=== PATIENT | male | born 1975 | race Caucasian/White ===

== ENCOUNTER 2017-02-18 19:02 | Emergency (ER) | payer BC, OTHER ==
[~2017-02-18] VITALS: Ht 188 cm; Wt 102.3 kg
[~2017-02-18 19:02] MED LIST: BIOT7500 PO; BUSP5TA PO; CALC250T PO; HYDR-3713 PO; OMEP20CA3 PO; TEGR200T PO; TYLE325T5 PO; VITA1CAP7 PO; VITMTA PO; ZONE1CAP PO; [UNRECOGNIZED DRUG - CODE] SL
[2017-02-18 21:26] LABS: BASO % 0.4 % (0.0-1.0); EOS # 0.2 K/mm3 (0.0-0.50); EOS % 3.9 % (0.0-3.0); LARGE UNSTAINED CELL # 0.1 K/mm3 (0.0-0.4); LARGE UNSTAINED CELL % 2.3 % (0.0-4.0); LYMPH # 1.9 K/mm3 (1.5-4.5); LYMPH % 41.3 % (24.0-44.0); MEAN CORPUSCULAR HEMOGLOBIN 29.6 pg (27.0-33.0); MEAN CORPUSCULAR HGB CONC 32.6 g/dl (32.0-36.5); MEAN CORPUSCULAR VOLUME 90.6 fl (80.0-96.0); MONO # 0.3 K/mm3 (0.0-0.8); MONO % 6.7 % (0.0-5.0); NEUTROPHILS % 45.5 % (36.0-66.0); PLATELET COUNT, AUTOMATED 217 k/mm3 (150-450); RED CELL DISTRIBUTION WIDTH 13.4 % (11.5-14.5); WHITE BLOOD COUNT 4.4 K/mm3 (4.0-10.0)
[2017-02-18] MEDS ORDERED: CLINDAMYCIN 900 MG in APPROPRIATE DILUENT 1 EA IV ONE (21:30)
[2017-02-18] MEDS ORDERED: dexameTHASONE 20 MG/5 ML VIAL (J1100) IV ONE (21:45)
[2017-02-18 22:11] LABS: ALBUMIN 3.9 GM/DL (3.2-5.2); ALBUMIN/GLOBULIN RATIO 1.18 (1.00-1.93); ALKALINE PHOSPHATASE 75 U/L (45-117); ALT/SGPT 40 U/L (12-78); ANION GAP 8 MEQ/L (8-16); AST/SGOT 39 U/L (15-37); BILIRUBIN,DIRECT 0.1 MG/DL (0.0-0.2); BILIRUBIN,TOTAL 0.5 MG/DL (0.2-1.0); BLOOD UREA NITROGEN 11 MG/DL (7-18); CALCIUM LEVEL 8.3 MG/DL (8.5-10.1); CARBON DIOXIDE LEVEL 25 MEQ/L (21-32); CHLORIDE LEVEL 108 MEQ/L (98-107); CREATININE FOR GFR 0.77 MG/DL (0.70-1.30); GLOMERULAR FILTRATION RATE > 60.0 (>60); GLUCOSE, FASTING 69 MG/DL (70-105); POTASSIUM SERUM 3.9 MEQ/L (3.5-5.1); SODIUM LEVEL 141 MEQ/L (136-145); TOTAL PROTEIN 7.2 GM/DL (6.4-8.2)
[2017-02-18 22:35] VITALS: BP 125/78
== END 2017-02-18 23:04 | disposition home or self-care (01) ==
LOC: M ED 19:02
DX: K12.2 Cellulitis and abscess of mouth (principal); J02.9 Acute pharyngitis, unspecified; R56.9 Unspecified convulsions; Z79.899 Other long term (current) drug therapy; Z88.5 Allergy status to narcotic agent; Z88.0 Allergy status to penicillin
CPT/HCPCS: 36415; 80048; 80076; 83605; 85025; 86140; 87040; 87077; 87186; 96374; 96375; 99283; J1100

== ENCOUNTER → 2017-12-09 | Outpatient (REF) | payer BC ==
[2017-12-09 13:17] LABS: BASO % 0.5 % (0.0-1.0); EOS # 0.1 10^3/uL (0.0-0.50); EOS % 2.8 % (0.0-3.0); HEMATOCRIT 40.8 % (42.0-52.0); HEMOGLOBIN 13.2 g/dl (13.5-17.5); LYMPH # 1.6 10^3/uL (1.5-4.5); LYMPH % 39.5 % (24.0-44.0); MEAN CORPUSCULAR HEMOGLOBIN 28.1 pg (27.0-33.0); MEAN CORPUSCULAR HGB CONC 32.4 g/dl (32.0-36.5); MEAN CORPUSCULAR VOLUME 86.8 fl (80.0-96.0); MONO # 0.4 10^3/uL (0.0-0.8); MONO % 9.8 % (0.0-5.0); NEUTROPHILS # 1.9 10^3/uL (1.8-7.7); NEUTROPHILS % 47.4 % (36.0-66.0); PLATELET COUNT, AUTOMATED 242 10^3/uL (150-450); RED CELL DISTRIBUTION WIDTH 13.6 % (11.5-14.5)
[2017-12-09 13:42] LABS: ALBUMIN 3.9 GM/DL (3.2-5.2); ALBUMIN/GLOBULIN RATIO 1.18 (1.00-1.93); ALKALINE PHOSPHATASE 69 U/L (45-117); ALT/SGPT 42 U/L (12-78); ANION GAP 8 MEQ/L (8-16); AST/SGOT 34 U/L (7-37); BILIRUBIN,TOTAL 0.4 MG/DL (0.2-1.0); BLOOD UREA NITROGEN 18 MG/DL (7-18); CALCIUM LEVEL 8.1 MG/DL (8.5-10.1); CARBAMAZEPINE (TEGRETOL) LEVEL 5.1 UG/ML (4.0-10.0); CARBON DIOXIDE LEVEL 29 MEQ/L (21-32); CHLORIDE LEVEL 105 MEQ/L (98-107); CREATININE FOR GFR 0.86 MG/DL (0.70-1.30); GLOMERULAR FILTRATION RATE > 60.0 (>60); GLUCOSE, FASTING 93 MG/DL (70-100); POTASSIUM SERUM 4.4 MEQ/L (3.5-5.1); SODIUM LEVEL 142 MEQ/L (136-145); TOTAL PROTEIN 7.2 GM/DL (6.4-8.2)
[2017-12-11 10:16] LABS: ZONISAMIDE LEVEL 4.8 ug/mL (10.0-40.0)
== END ==
LOC: M LABNEURO 11:15
DX: G40.909 Epilepsy, unspecified, not intractable, without status epilepticus (principal)
CPT/HCPCS: 80156

== ENCOUNTER 2018-03-22 10:36 | Day surgery (SDC) | payer OTHER ==
[2018-03-22] MEDS ORDERED: PROPOFOL 200 MG/20 ML VIAL As Ordered ×2 (11:21)
[2018-03-22] MEDS ORDERED: fentaNYL 100 MCG/2 ML INJECTION (J3010) As Ordered ×3 (11:21→14:49)
[2018-03-22] MEDS ORDERED: MIDAZOLAM INJ 2 MG/2 ML VIAL (J2250) As Ordered (11:21)
[2018-03-22] MEDS ORDERED: ROCURONIUM BROMIDE 50 MG/5 ML VIAL As Ordered ×4 (11:21→13:41)
[2018-03-22] MEDS ORDERED: LIDOCAINE 2% INJ 100 MG/5 ML SDV (FOR ANES.) As Ordered (11:21)
[2018-03-22] MEDS ORDERED: dexameTHASONE 4 MG/ML 1ML VIAL (J1100) As Ordered (11:21)
[2018-03-22] MEDS: LR 1,000 ML IV (11:25)
[2018-03-22] MEDS: CLINDAMYCIN 600 MG in APPROPRIATE DILUENT 1 EA IV (13:00)
[2018-03-22] MEDS: BUPIVACAINE/EPIN 0.25% 30 ML VIAL As Ordered (13:20)
[2018-03-22] MEDS ORDERED: ONDANSETRON 4MG/2ML VIAL (J2405) As Ordered (14:04)
[2018-03-22] MEDS ORDERED: GLYCOPYRROLATE INJ 0.2 MG/ML 2 ML VIAL As Ordered ×2 (14:04)
[2018-03-22] MEDS ORDERED: PERCOCET 5MG/325MG TAB As Ordered (14:49)
[2018-03-22] MEDS: fentaNYL 100 MCG/2 ML INJECTION (J3010) IV ×4 (14:50→15:05)
[2018-03-22] MEDS: PERCOCET 5MG/325MG TAB PO ×2 (14:58→15:30)
[2018-03-22] MEDS ORDERED: MORPHINE 4 MG/ML 1ML VIAL/SYRINGE (J2270) As Ordered (15:13)
[2018-03-22] MEDS ORDERED: NORCO, ANEXSIA 5/325MG TABLET (HYDROcodone/ACETAMINOPHEN) PO (15:15)
[2018-03-22] MEDS: MORPHINE 10 MG/ML 1ML VIAL (J2270) IV (15:15)
[2018-03-22] MEDS ORDERED: LR 1,000 ML IV (15:15)
[2018-03-22] MEDS: MORPHINE 4 MG/ML 1ML VIAL/SYRINGE (J2270) IV ×2 (15:15→15:58)
[2018-03-22] MEDS ORDERED: ONDANSETRON 4MG/2ML VIAL (J2405) IV (15:15)
== END 2018-03-22 19:00 | disposition home or self-care (01) ==
LOC: M SDC 10:36
DX: K40.90 Unilateral inguinal hernia, without obstruction or gangrene, not specified as recurrent (principal); R56.9 Unspecified convulsions; Z79.899 Other long term (current) drug therapy; Z88.0 Allergy status to penicillin; Z98.84 Bariatric surgery status
CPT/HCPCS: 49650

== ENCOUNTER 2020-02-16 06:25 | Emergency (ER) | payer BC, OTHER ==
[~2020-02-16] VITALS: Ht 185.4 cm; Wt 120.0 kg
[~2020-02-16 06:25] MED LIST changes: +BACL1TAB9 PO; +CAL-150C PO; +CALC950T PO; +D-3-50003 PO; +DEPA1TAB3 PO; +OMEP1CAP73 PO; -OMEP20CA3 PO; +SUCR1SS PO; -VITA1CAP7 PO
[2020-02-16 07:29] LABS: BLOOD UREA NITROGEN 19 MG/DL (7-18); CALCIUM LEVEL 8.3 MG/DL (8.5-10.1); CARBON DIOXIDE LEVEL 30 MEQ/L (21-32); CHLORIDE LEVEL 108 MEQ/L (98-107); CREATININE FOR GFR 0.84 MG/DL (0.70-1.30); GLOMERULAR FILTRATION RATE > 60.0 (>60); GLUCOSE, FASTING 110 MG/DL (70-100); POTASSIUM SERUM 4.3 MEQ/L (3.5-5.1); SODIUM LEVEL 139 MEQ/L (136-145)
[2020-02-16] MEDS ORDERED: VENL75CA47 (07:37)
[2020-02-16 09:01] LABS: CARBAMAZEPINE (TEGRETOL) LEVEL 0.6 UG/ML (4.0-10.0)
[2020-02-16] MEDS ORDERED: carBAMazepine 200 MG TAB PO ONE (09:30)
[2020-02-16 09:51] VITALS: BP 145/82
== END 2020-02-16 09:57 | disposition home or self-care (01) ==
LOC: EDBD 06:25 → M ED 06:25
DX: G40.909 Epilepsy, unspecified, not intractable, without status epilepticus (principal); Z91.14 Patient's other noncompliance with medication regimen; Z98.84 Bariatric surgery status; Z82.0 Family history of epilepsy and other diseases of the nervous system; Z88.0 Allergy status to penicillin; Z88.5 Allergy status to narcotic agent; Z79.899 Other long term (current) drug therapy

== ENCOUNTER 2020-07-10 10:38 | Emergency (ER) | payer BC ==
[~2020-07-10] VITALS: Ht 185.4 cm; Wt 104.5 kg
[~2020-07-10 10:38] MED LIST changes: +VENL75CA47
[2020-07-10] MEDS ORDERED: SILD50TA2 (10:52)
[2020-07-10] MEDS ORDERED: AIMO70IN2 IM (10:52)
[2020-07-10] MEDS ORDERED: carBAMazepine XR 200 MG TAB PO ONE (11:00)
--- NOTE | 2020-07-10 11:15 | REP ---
INDICATION: Seizure with head trauma COMPARISON: 09/28/2017 TECHNIQUE: Axial noncontrast images from the skull base to the vertex with coronal reformations. This CT examination was performed using the following dose reduction techniques: Automated exposure control, adjustment of mA and/or kv according to the patient's size, and use of iterative reconstruction technique. FINDINGS: The ventricles, sulci, and cisterns are normal in position and appearance. Prasad-white differentiation is maintained. No acute intracranial hemorrhage, mass/mass effect, pathology or trauma/injury. No evidence for acute infarction. No extra-axial fluid collection. Calvarium is intact. Paranasal sinuses and mastoid air cells are clear. IMPRESSION: Normal noncontrast head CT. No evidence for acute intracranial pathology or trauma/injury. <Electronically signed by Pawan Gilmore > 07/10/20 [id number]
[2020-07-10] MEDS: MORPHINE 4 MG/ML 1ML VIAL/SYRINGE (J2270) IV PRN ×2 (11:40→12:37)
--- NOTE | 2020-07-10 11:49 | REP ---
INDICATION: injury after fall COMPARISON: None. TECHNIQUE: AP, lateral, bilateral oblique views of the left elbow elbow. FINDINGS: No acute fracture or dislocation is appreciated. Joint spaces and surrounding soft tissues appear normal. Lateral view demonstrates normal positioning to the anterior and posterior fat pads without evidence for effusion/hemarthrosis. No subcutaneous emphysema or foreign body identified. IMPRESSION: Normal elbow radiographs. No acute fracture or dislocation. <Electronically signed by Pawan Gilmore > 07/10/20 [id number]
--- NOTE | 2020-07-10 11:49 | REP ---
INDICATION: injury after fall COMPARISON: None. TECHNIQUE: AP, lateral, bilateral oblique views left wrist. FINDINGS: The carpal bones, surrounding osseous structures, soft tissues, and joint spaces are normal. There is no evidence for acute fracture or dislocation. No subcutaneous emphysema or radiodense foreign body. IMPRESSION: Normal wrist series. No acute fracture or dislocation. <Electronically signed by Pawan Gilmore > 07/10/20 [id number]
--- NOTE | 2020-07-10 11:50 | REP ---
INDICATION: injury after fall COMPARISON: None. TECHNIQUE: AP, lateral left forearm FINDINGS: The osseous structures and joint spaces are intact and normal. There is no evidence for acute fracture or dislocation. Surrounding soft tissues are unremarkable. No subcutaneous emphysema or radiodense foreign body. IMPRESSION: . No acute fracture or dislocation. <Electronically signed by Pawan Gilmore > 07/10/20 [id number]
--- OUTSIDE RECORDS SUMMARY | 2020-07-10 11:58 | CCD | Continuity of Care Document ---
Author Yazan Pozo M.D. Organization Unknown Address [address] [place] [address] Phone [phone] Problems Active Problems Provider Date Epilepsy Rojas Bahena M.D. Onset: 07/18/2014 Migraine without aura Rojas Bahena M.D. Onset: 07/18/2014 Social History Type Date Description Comments Sex Unknown Tobacco Use Start: Unknown Patient has never smoked Allergies, Adverse Reactions, Alerts Active Allergies Reaction Severity Comments Date Penicillins 07/18/2014 Medications Active Medications SIG Qnty Indications Ordering Provide r Date Ropinirole HCL 1mg Tablets take one tablet by mouth at bedtime 90tabs Rojas Bahena M.D. 06/11/2020 Aimovig 140mg/ml Solution Auto-Inj ect 1 inject 140mg/ml sc once a month 1ml Starr Osuna 06/11/2020 Seroquel 25mg Tablets take one tablet by mouth at bedtime 90tabs Rojas Bahena M.D. 12/07/2019 Effexor XR 75mg Caps ER 24HR 1 by mouth every day 90caps Rojas Bahena M.D. 10/19/2018 Baclofen 20mg Tablets 1 by mouth every night at bedtime 90tabs Rojas Bahena M.D. 01/06/2018 Butalbital/Acetaminophen/Caffeine 50-325-40mg Capsules 1 by mouth three times a day as needed 30caps Ab laura Bahena M.D. 10/14/2017 Ativan 2mg Tablets 1 by mouth at onset of a seizure 30tabs Rojas Bahena M.D. 03/15/2013 Zonisamide 100mg Capsules take four capsules by mouth at bedtime 360caps Rojas Bahena M.D. 0 01/11/2013 Tegretol-XR 200mg Tablets ER 12HR take three tablets by mouth twice a day 540tabs Rojas Bahena M.D. 01/11/2013 Immunizations Description No Information Available Vital Signs Date Vital Result Comment 07/18/2014 11:06am BP Systolic 140 mmHg BP Diastolic 80 mmHg Heart Rate 72 /min Height 74 inches 6'2" Weight 198.00 lb BMI (Body Mass Index) 25.4 kg/m2 [place] Body Weight 190 lb Results Test Acquired Date Facility Test Result H/L Range Note Basic Metabolic Profile 02/16/2020 [facility] Glucose, Fasting 110 mg/dL High 70-100 Blood Urea Nitrogen 19 mg/dL High 7-18 Creatinine For GFR 0.84 mg/dL Normal 0.70-1.30 Glomerular Filtration Rate > 60.0 Normal >60 1 Sodium Level 139 mEq/L Normal 136-145 Potassium Serum 4.3 mEq/L Normal 3.5-5.1 Chloride Level 108 mEq/L High 98-107 Carbon Dioxide Level 30 mEq/L Normal 21-32 Anion Gap 1 mEq/L Low 8-16 Calcium Level 8.3 mg/dL Low 8.5-10.1 Laboratory test finding 02/16/2020 [facility] Carbamazepine (Tegretol) Level 0.6 UG/ML Low 4.0-10.0 1 Units are mL/min/1.73 m2 Chronic Kidney Disease Staging per NKF: Stage I & II GFR >=60 Normal to Mildly Decreased Stage III GFR 30-59 Moderately Decreased Stage IV GFR 15-29 Severely Decreased Stage V GFR <15 Very Little GFR Left ESRD GFR <15 on [employer] BU[employer]DER Procedures Description No Information Available Medical Devices Description No Information Available Encounters Description No Information Available Assessments Description No Information Available Plan of Treatment No Information Available Functional Status Description No Information Available Mental Status Description No Information Available Referrals Description No Information Available
--- OUTSIDE RECORDS SUMMARY | 2020-07-10 11:58 | CCD | Continuity of Care Document ---
Author Yazan Pozo M.D. Organization Unknown Address [address] [place] [address] Phone [phone] Problems Active Problems Provider Date Epilepsy Rojas [...] lb BMI (Body Mass Index) 25.4 kg/m2 [place] Body Weight 190 lb Results Test Acquired Date Facility Test Result H/L Range Note Basic Metabolic Profile 02/16/2020 [facility] Glucose, Fasting 110 mg/dL High 70-100 Blood [...] mg/dL Low 8.5-10.1 Laboratory test finding 02/16/2020 [facility] Carbamazepine (Tegretol) Level 0.6 UG/ML Low 4.0-10.0 1 Units are mL/min/1.73 m2 Chronic Kidney Disease Staging per NKF: Stage I & II GFR >=60 Normal to Mildly Decreased Stage III GFR 30-59 Moderately Decreased Stage IV GFR 15-29 Severely Decreased Stage V GFR <15 Very Little GFR Left ESRD GFR <15 on [employer]DER Procedures Description No Information Available Medical Devices Description No Information Available Encounters Type Date Location Provider Dx Diagnosis Office Visit 06/11/2020 10:00a Main office - [place] Rojas Bahena M.D. M79.606 Pain in leg, unspecified G40.911 Epilepsy, unspecified, intra ctable, with status epilepticus G43.819 Other migraine, intractable, without status migrainosus M62.838 Other muscle spasm G25.81 Restless legs syndrome Assessments Date Code Description Provider 06/11/2020 M79.606 Pain in leg, unspecified Jamee santiago M.D. 06/11/2020 G40.911 Epilepsy, unspecified, intractab le, with status epilepticus Rojas Bahena M.D. 06/11/2020 G43.819 Other migraine, intractable, wit hout status migrainosus Rojas Bahena M.D. 06/11/2020 M62.838 Other muscle spasm Rojas Bahena M.D. 06/11/2020 G25.81 Restless legs syndrome Jamar mayer M.D. Plan of Treatment No Information Available Functional Status Description No Information Available Mental Status Description No Information Available Referrals Description No Information Available
--- OUTSIDE RECORDS SUMMARY | 2020-07-10 11:59 | CCD ---
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 rce(s) Supporting Document(s) SARS coronavirus 2 RNA [facility] This lab was ordered by [facility] and reported by [facility]. ID Date Data Source [id number] 05/15/2020 07:30:00 AM EST [facility] Name Value Range Interpretation Code Description Data Shalini rce(s) Supporting Document(s) SARS coronavirus 2 RNA [facility] This lab was ordered by [facility] and reported by [facility]. ID Date Data Source [id number] 05/08/2020 09:00:00 AM EST [facility] Name Value Range Interpretation Code Description Data Shalini rce(s) Supporting Document(s) SARS coronavirus 2 RNA [facility] This lab was ordered by [facility] and reported by [facility]. ID Date Data Source [id number] 05/01/2020 09:20:00 AM EST [facility] Name Value Range Interpretation Code Description Data Shalini rce(s) Supporting Document(s) SARS coronavirus 2 RNA [facility] This lab was ordered by [facility] and reported by [facility]. ID Date Data Source [id number] 04/24/2020 07:30:00 AM EDT [facility] Name Value Range Interpretation Code Description Data Shalini rce(s) Supporting Document(s) SARS coronavirus 2 RNA [facility] This lab was ordered by [facility] and reported by [facility]. ID Date Data Source [id number] 04/17/2020 09:28:00 AM EDT [facility] Name Value Range Interpretation Code Description Data Shalini rce(s) Supporting Document(s) SARS coronavirus 2 RNA [facility] This lab was ordered by [facility] and reported by [facility]. ID Date Data Source [id number] 04/10/2020 12:00:00 PM EDT [facility] Name Value Range Interpretation Code Description Data Shalini rce(s) Supporting Document(s) SARS coronavirus 2 RNA [facility] This lab was ordered by [facility] and reported by [facility]. ID Date Data Source [id number] 04/03/2020 08:00:00 AM EDT [facility] Name Value Range Interpretation Code Description Data Shalini rce(s) Supporting Document(s) SARS coronavirus 2 RNA [facility] This lab was ordered by [facility] and reported by [facility]. ID Date Data Source [id number] 03/20/2020 08:02:00 AM EDT [facility] Name Value Range Interpretation Code Description Data Shalini rce(s) Supporting Document(s) SARS coronavirus 2 RNA [facility] This lab was ordered by [facility] and reported by [facility]. ID Date Data Source [id number] 03/13/2020 08:00:00 AM EDT [facility] Name Value Range Interpretation Code Description Data Shalini rce(s) Supporting Document(s) SARS coronavirus 2 RNA [facility] This lab was ordered by [facility] and reported by [facility]. ID Date Data Source [id number] 03/06/2020 08:31:00 AM EDT [facility] Name Value Range Interpretation Code Description Data Shalini rce(s) Supporting Document(s) SARS coronavirus 2 RNA [facility] This lab was ordered by [facility] and reported by [facility]. ID Date Data Source [id number] 03/01/2020 08:00:00 AM EDT [facility] Name Value Range Interpretation Code Description Data Shalini rce(s) Supporting Document(s) SARS coronavirus 2 RNA [facility] This lab was ordered by [facility] and reported by [facility]. ID Date Data Source [id number] 02/21/2020 09:34:00 AM EDT [facility] Name Value Range Interpretation Code Description Data Shalini rce(s) Supporting Document(s) SARS coronavirus 2 RNA [facility] This lab was ordered by [facility] and reported by [facility]. ID Date Data Source [id number] 02/16/2020 06:47:00 AM EDT [facility] ([facility]) Name Value Range Interpretation Code Description Data Shalini rce(s) Supporting Document(s) Carbamazepine [Mass/volume] in Serum or Plasma 0.6 UG/ML 4.0-10.0 [facility] ([facility]) ID Date Data Source [id number] 02/16/2020 06:47:00 AM EDT [facility] ([facility]) Name Value Range Interpretation Code Description Data Shalini rce(s) Supporting Document(s) Glucose, Fasting 110 mg/dL 70-100 [facility] ([facility]) Creatinine For GFR 0.84 mg/dL 0.70-1.30 [facility] ([facility]) Blood Urea Nitrogen 19 mg/dL 7-18 [facility] ([facility]) Glomerular Filtration Rate Laboratory test result [facility]) <content>Units are mL/min/1.73 m2</content>
<content></content>
<content>Chronic Kidney Disease Staging per NKF:</content>
<content></content>
<content>Stage I & II GFR >=60 Normal to Mildly Decreased</content>
<content>Stage III GFR 30- 59 Moderately Decreased</content>
<content>Stage IV GFR 15-29 Severely Decreased</content>
<content>Stage V GFR <15 Very Little GFR Left</content>
<content>ESRD GFR <15 on [employer]</content>
<content></content> Potassium Serum 4.3 meq/L 3.5-5.1 [facility] ([facility]) Sodium Level 139 meq/L 136-145 [facility] ([facility]) Chloride Level 108 meq/L 98-107 [facility] ([facility]) Calcium Level 8.3 mg/dL 8.5-10.1 [facility] ([facility]) Anion Gap 1 meq/L 8-16 [facility] ([facility]) Carbon Dioxide Level 30 meq/L 21-32 [facility] ([facility]) ID Date Data Source [id number] 01/17/2020 10:00:00 AM EDT [facility] Name Value Range Interpretation Code Description Data Shalini rce(s) Supporting Document(s) SARS coronavirus 2 RNA [facility] This lab was ordered by [facility] and reported by [facility]. ID Date Data Source [id number] 01/10/2020 11:08:00 AM EDT [facility] Name Value Range Interpretation Code Description Data Shalini rce(s) Supporting Document(s) SARS coronavirus 2 RNA [facility] This lab was ordered by [facility] and reported by [facility]. ID Date Data Source [id number] 01/03/2020 11:28:00 AM EDT [facility] Name Value Range Interpretation Code Description Data Shalini rce(s) Supporting Document(s) SARS coronavirus 2 RNA [facility] This lab was ordered by [facility] and reported by [facility]. ID Date Data Source [id number] 12/27/2019 05:30:00 AM EDT [facility] Name Value Range Interpretation Code Description Data Shalini rce(s) Supporting Document(s) SARS CORONAVIRUS 2 RNA [facility] This lab was ordered by [facility] and reported by [facility]. ID Date Data Source [id number] 12/20/2019 09:09:00 AM EDT [facility] Name Value Range Interpretation Code Description Data Shalini rce(s) Supporting Document(s) SARS CORONAVIRUS 2 RNA [facility] This lab was ordered by [facility] and reported by [facility]. ID Date Data Source [id number] 12/13/2019 11:17:00 AM EDT [facility] Name Value Range Interpretation Code Description Data Shalini rce(s) Supporting Document(s) SARS CORONAVIRUS 2 RNA [facility] This lab was ordered by [facility] and reported by [facility]. ID Date Data Source [id number] 12/06/2019 06:00:00 AM EDT [facility] Name Value Range Interpretation Code Description Data Shalini rce(s) Supporting Document(s) SARS CORONAVIRUS 2 RNA [facility] This lab was ordered by [facility] and reported by [facility]. ID Date Data Source [id number] 12/02/2019 10:00:00 AM EDT [facility] Name Value Range Interpretation Code Description Data Shalini rce(s) Supporting Document(s) SARS CORONAVIRUS 2 RNA [facility] This lab was ordered by [facility] and reported by [facility]. ID Date Data Source [id number] 11/29/2019 03:22:00 PM EDT [facility] Name Value Range Interpretation Code Description Data Shalini rce(s) Supporting Document(s) SARS CORONAVIRUS 2 RNA [facility] This lab was ordered by [facility] and reported by [facility]. ID Date Data Source [id number] 11/25/2019 10:18:00 AM EDT [facility] Name Value Range Interpretation Code Description Data Shalini rce(s) Supporting Document(s) SARS CORONAVIRUS 2 RNA [facility] This lab was ordered by [facility] and reported by [facility]. ID Date Data Source [id number] 11/23/2019 11:36:00 AM EDT [facility] Name Value Range Interpretation Code Description Data Shalini rce(s) Supporting Document(s) SARS CORONAVIRUS 2 RNA [facility] This lab was ordered by [facility] and reported by [facility]. ID Date Data Source [id number] 11/17/2019 10:47:00 AM EDT [facility] Name Value Range Interpretation Code Description Data Shalini rce(s) Supporting Document(s) SARS CORONAVIRUS 2 RNA [facility] This lab was ordered by [facility] and reported by [facility]. ID Date Data Source [id number] 11/15/2019 11:00:00 AM EDT [facility] Name Value Range Interpretation Code Description Data Shalini rce(s) Supporting Document(s) SARS CORONAVIRUS 2 RNA [facility] This lab was ordered by [facility] and reported by [facility]. ID Date Data Source [id number] 07/08/2019 02:59:00 PM [facility] Name Value Range Interpretation Code Description Data Shalini rce(s) Supporting Document(s) Thyrotropin [Units/volume] in Serum or Plasma by Detec tion limit <= 0.05 mIU/L 4.27 uIU/mL 0.47 - 5.01 [facility] ID Date Data Source [id number] 07/08/2019 02:59:00 PM [facility] Name Value Range Interpretation Code Description Data Shalini rce(s) Supporting Document(s) Hemoglobin A1c/Hemoglobin.total in Blood 5.2 % 4.4 - 6.1 [facility] {A1]{HB] ID Date Data Source [id number] 07/08/2019 02:49:00 PM [facility] Name Value Range Interpretation Code Description Data Shalini rce(s) Supporting Document(s) Iron [Mass/volume] in Serum or Plasma 55 UG/DL 42 - 135 [facility] ID Date Data Source [id number] 07/08/2019 02:49:00 PM [facility] Value Range Interpretation Code Description Data Shalini rce(s) Supporting Document(s) [facility] Cholesterol [Mass/volume] in Serum or Plasma 175 MG/DL 131 - 200 [facility] Deprecated Triglyceride [Mass/volume] in Serum or Plasma 70 MG/DL 3 5 - 160 [facility] HDL 74 MG/DL 29 - 86 [facility] Cholesterol in LDL/Cholesterol in HDL [Mass Ratio] in Serum or Plasma 97 mg/dL 65 - 175 [facility] Cholesterol.total/Cholesterol in HDL [Mass Ratio] in Serum o r Plasma 2.4 3.4 - 4.9 L [facility] LDL/HDL 1.31 1.00 - 3.55 [facility] CVE RISK CHOL/HDL LDL/HDLMEN: 1/2 AVERAGE 3.43 1.00 AVERAGE 4.97 3.55 2X AVERAGE 9.55 6.25 3X AVERAGE 23.99 7.99WOMEN: 1/2 AVERAGE 3.27 1.47 AVERAGE 4.44 3.22 2X AVERAGE 7.05 5.03 3X AVERAGE 11.04 6.14 ID Date Data Source [id number] 07/08/2019 02:49:00 PM [facility] Name Value Range Interpretation Code Description Data Shalini rce(s) Supporting Document(s) COMPREHENSIVE METABOLIC PANEL [facility] COMPREHENSIVE METABOLIC PANEL Sodium [Moles/volume] in Serum or Plasma 141 mEq/L 134 - 153 [facility] Potassium [Moles/volume] in Serum or Plasma 4.2 mEq/L 3.6 - 5.0 [facility] Chloride [Moles/volume] in Serum or Plasma 103 mEq/L 98 - 107 [facility] Carbon dioxide, total [Moles/volume] in Serum or Plasma 29 MEQ/L 22 - 30 [facility] Glucose [Mass/volume] in Serum or Plasma 116 MG/DL 65 - 110 H [facility] BUN 8 MG/DL 7 - 21 [facility] al Creatinine [Mass/volume] in Serum or Plasma 0.7 MG/DL 0.7 - 1.5 [facility] BUN/CREAT 11 8 - 27 [facility] al Protein [Mass/volume] in Serum or Plasma 7.2 G/DL 6.3 - 8.2 [facility] Albumin [Mass/volume] in Serum or Plasma 4.4 G/DL 3.9 - 5.0 [facility] Globulin [Mass/volume] in Serum by calculation 2.8 GM/DL 2.4 - 3.2 [facility] A/G RATIO 1.6 0.8 - 2.0 [facility] Calcium [Mass/volume] in Serum or Plasma 9.2 MG/DL 8.4 - 10.2 [facility] Bilirubin.total [Mass/volume] in Serum or Plasma 0.7 MG/DL 0.2 - 1.3 [facility] Alkaline phosphatase [Enzymatic activity/volume] in Serum or Plasma 82 U/L 38 - 126 [facility] Aspartate aminotransferase [Enzymatic activity/volume] in Serum or Plasma 37 U/L 5 - 40 [facility] Alanine aminotransferase [Enzymatic activity/volume] in Seru m or Plasma 30 U/L 7 - 56 [facility] Anion gap 3 in Serum or Plasma 9.0 mmol/L 8.0 - 16.0 [facility] AGE [address] [facility] GFR >60 mL/min [facility] AFR AMER GFR >60 mL/min [facility] Male GFR In terprentation 20-49 yrs >60 mL/min Normal 50-59 yrs >56 mL/min Normal 60-69 yrs >49 mL/min Normal 70-79yrs >42 mL/min Normal 80 and above >35 mL/min Normal Female GFR Interpretation 20-39 yrs >60 mL/min Normal 40-49 yrs >58 mL/min Normal 50-59 yrs >51 mL/min Normal 60-69 yrs >45 mL/min Normal 70-79 yrs >39 mL/min Normal 80 and above >32 mL/min Normal ID Date Data Source [id number] 07/08/2019 02:39:00 PM EST [facility] Name Value Range Interpretation Code Description Data Shalini rce(s) Supporting Document(s) CBC W/AUTOMATED DIFF [facility] COMPLETE BLOOD COUNT Leukocytes [#/volume] in Blood by Automated count 4.2 10^3/uL 4.2 - 1 1.0 [facility] Erythrocytes [#/volume] in Blood by Automated count 4.96 10^6/uL 4. 50 - 6.30 [facility] Hemoglobin [Mass/volume] in Blood 14.0 g/dL 14.0 - 16.0 [facility] Hematocrit [Volume Fraction] of Blood by Automated count 43.1 % 4 1.0 - 51.0 [facility] Erythrocyte mean corpuscular volume [Entitic volume] by Auto mated count 86.9 fL 80.0 - 94.0 [facility] Erythrocyte mean corpuscular hemoglobin [Entitic mass] by Automated count 28.2 pg 27.0 - 34.0 [facility] Erythrocyte mean corpuscular hemoglobin concentration [Mass/volume] by Automated count 32.5 g/dL 31.0 - 36.0 [facility] Erythrocyte distribution width [Ratio] by Automated count 13.8 % 11.5 - 14.8 [facility] Platelets [#/volume] in Blood by Automated count 274 10^3/uL 150 - 45 0 [facility] Platelet mean volume [Entitic volume] in Blood by Automated count 10.6 fL 7.4 - 10.4 H [facility] Neutrophils/100 leukocytes in Blood by Automated count 55.3 % 37. 0 - 80.0 [facility] Lymphocytes/100 leukocytes in Blood by Manual count 31.4 % 25.0 - 40.0 [facility] Monocytes/100 leukocytes in Blood by Automated count 10.0 % 3.0 - 8.0 H [facility] Eosinophils/100 leukocytes in Blood by Automated count 2.4 % 0.0 - 7.0 [facility] Basophils/100 leukocytes in Blood by Automated count 0.7 % 0.0 - 2.0 [facility] %IG 0.2 % 0.0 - 0.0 H [facility] %NRBC 0.0 % 0.0 - 0.0 [facility] al Neutrophils [#/volume] in Blood by Automated count 2.32 10^3/uL 2.00 - 6.90 [facility] Lymphocytes [#/volume] in Blood by Automated count 1.32 10^3/uL 0.60 - 3.40 [facility] Monocytes [#/volume] in Blood by Automated count 0.42 10^3/uL 0.00 - 0.90 [facility] Eosinophils [#/volume] in Blood by Automated count 0.10 10^3/uL 0.00 - 0.70 [facility] Basophils [#/volume] in Blood by Automated count 0.03 10^3/uL 0.00 - 0.20 [facility] #IG 0.01 10^3/uL 0.00 - 0.10 [facility] #NRBC 0.00 10^3/uL 0.00 - 0.00 [facility]spital MANUAL DIFF NOT INDICATED [facility] RBC MORPH NOT INDICATED [facility] ID Date Data Source [id number] 07/08/2019 02:37:00 PM EST [facility] Name Value Range Interpretation Code Description Data Shalini rce(s) Supporting Document(s) [facility] SOURCE R [facility] COLOR yellow NORMAL: Yellow [facility] CLARITY clear NORMAL: Clear [facility] Specific gravity of Urine by Test strip 1.010 1.001 - 1.030 [facility] pH 7 5 - 9 [facility] Glucose [Mass/volume] in Urine by Test strip NORM NORMAL: Negat iveth [facility] Bilirubin.total [Presence] in Urine by Test strip NEG NORMAL: Negative [facility] Ketones [Presence] in Urine by Test strip 5 NORMAL: Negative A [facility] Protein [Mass/volume] in Urine by Test strip NEG NORMAL: Negat iveth [facility] Nitrite [Presence] in Urine by Test strip NEG NORMAL: Negative [facility] BLOOD NEG NORMAL: Negative [facility] Leukocyte esterase [Presence] in Urine by Test strip NEG MARCELLO L: Negative [facility] Urobilinogen [Mass/volume] in Urine by Test strip NOR less jacque n 1.0 mg/dL [facility] MICROSCOPIC Not Indicate [facility] ospital ID Date Data Source [id number] 07/08/2019 07:57:00 AM EST [facility] Name Value Range Interpretation Code Description Data Shalini rce(s) Supporting Document(s) Thyrotropin [Units/volume] in Serum or Plasma <pending> [facility] ([facility]) Thyroxine (T4) free [Mass/volume] in Serum or Plasma <pending> [facility] ([facility]) Folate [Mass/volume] in Serum or Plasma <pending> [facility] ([facility]) Calcidiol [Mass/volume] in Serum or Plasma <pending> [facility] ([facility]) Iron [Mass/volume] in Serum or Plasma <pending> [facility] ([facility]) Cobalamin (Vitamin B12) [Mass/volume] in Serum or Plasma <pending> [facility] ([facility]) ID Date Data Source [id number] 07/08/2019 07:57:00 AM EST [facility] ([facility]) Name Value Range Interpretation Code Description Data Shalini rce(s) Supporting Document(s) Hemoglobin A1c/Hemoglobin.total in Blood <pending> [facility] ([facility]) ID Date Data Source [id number] 07/08/2019 02:59:00 PM EST [facility] Name Value Range Interpretation Code Description Data Shalini rce(s) Supporting Document(s) Cobalamin (Vitamin B12) [Mass/volume] in Serum or Plasma 1684 PG /ML 232 - 1245 H [facility] ID Date Data Source [id number] 07/08/2019 02:59:00 PM [facility] Name Value Range Interpretation Code Description Data Shalini rce(s) Supporting Document(s) Folate [Mass/volume] in Serum or Plasma 13.6 NG/ML 4.4 - 31.0 [facility] ID Date Data Source [id number] 07/08/2019 02:59:00 PM [facility] Name Value Range Interpretation Code Description Data Shalini rce(s) Supporting Document(s) Calcidiol [Moles/volume] in Serum or Plasma 23 NG/ML [facility] VITAMIN-D(2 5HYDROXY) Deficiency: <=20 ng/ml Insufficiency: 21-29 ng/ml Preferred level: => 30 ng/ml ID Date Data Source [id number] 07/08/2019 02:59:00 PM [facility] Name Value Range Interpretation Code Description Data Shalini rce(s) Supporting Document(s) Thyroxine (T4) free index in Serum or Plasma by calculation 1.02 NG/DL 0.93 - 1.70 [facility] Procedure Vital Signs ID Date Data Source UNK Name Value Range Interpretation Code Description Data Source(s) Body surface area 2.33 m2 2.33 m2 [facility]) Body mass index (BMI) [Ratio] 35.1 kg/m2 35.1 k g/m2 [facility] ([facility]) Body height 71 [in_i] 71 [in_i] [facility] ([facility]) 5'11" Body weight 114.307 kg 114.307 kg [facility] ([facility]) Body weight 252.00 [lb_av] 252.00 [lb_av] [facility] ([facility]) Oxygen saturation in Arterial blood by Pulse oximetry 98 % 98 % [facility] ([facility]) Respiratory rate 16 /min 16 /min [facility]) Body temperature 98.5 [degF] 98.5 [degF] [facility]) Heart rate 73 /min 73 /min [facility] ([facility]) Diastolic blood pressure 80 mm[Hg] 80 mm[Hg] [facility] ([facility]) Systolic blood pressure 132 mm[Hg] 132 mm[Hg] M [facility]J ([facility])
[2020-07-10 12:35] LABS: BASO % 0.5 % (0.0-1.0); EOS % 0.5 % (0.0-3.0); HEMATOCRIT 40.6 % (42.0-52.0); HEMOGLOBIN 12.9 g/dl (13.5-17.5); LYMPH # 0.9 10^3/uL (1.5-5.0); LYMPH % 13.9 % (24.0-44.0); MEAN CORPUSCULAR HEMOGLOBIN 27.5 pg (27.0-33.0); MEAN CORPUSCULAR HGB CONC 31.8 g/dl (32.0-36.5); MEAN CORPUSCULAR VOLUME 86.6 fl (80.0-96.0); MONO # 0.6 10^3/uL (0.0-0.8); MONO % 8.9 % (0.0-5.0); NEUTROPHILS # 4.7 10^3/uL (1.5-8.5); NEUTROPHILS % 75.7 % (36.0-66.0); PLATELET COUNT, AUTOMATED 215 10^3/uL (150-450); RED BLOOD COUNT 4.69 10^6/uL (4.30-6.10); WHITE BLOOD COUNT 6.2 10^3/uL (4.0-10.0)
[2020-07-10 13:11] LABS: BLOOD UREA NITROGEN 15 MG/DL (7-18); CREATININE FOR GFR 0.89 MG/DL (0.70-1.30); GLOMERULAR FILTRATION RATE > 60.0 (>60); GLUCOSE, FASTING 95 MG/DL (70-100)
[2020-07-10 13:12] LABS: ALBUMIN 3.8 GM/DL (3.2-5.2); ALT/SGPT 61 IU/L (0-32); BILIRUBIN,DIRECT 0.1 MG/DL (0.0-0.2); BILIRUBIN,TOTAL 0.5 MG/DL (0.2-1.0); CALCIUM LEVEL 8.5 MG/DL (8.5-10.1); CARBAMAZEPINE (TEGRETOL) LEVEL 1.5 UG/ML (4.0-10.0); CARBON DIOXIDE LEVEL 23 mmol/L (20-29); CHLORIDE LEVEL 108 MEQ/L (98-107); PHENYTOIN (DILANTIN) 0.5 UG/ML (10.0-20.0); POTASSIUM SERUM 3.8 MEQ/L (3.5-5.1); SODIUM LEVEL 140 MEQ/L (136-145); TOTAL PROTEIN 6.8 GM/DL (6.4-8.2)
[2020-07-10 14:15] VITALS: BP 139/72
--- NOTE | 2020-07-10 17:23 | ECGEPIP ---
[facility] - ED Test Date: 2020-07-10 Pat Name: JÚNIOR EDDY Department: Room: - Gender: Male Social Work Program Coordinator: : 1975 Requested By: TERRANCE ORTA Order Number: [id number] Reading MD: Kristie Espino Measurements Intervals [place] Rate: 63 P: 32 SD: 180 QRS: 61 QRSD: 99 T: 41 QT: 410 QTc: 422 Interpretive Statements SINUS RHYTHM NSTTW abnormalities SIMILAR 09/28/17 Electronically Signed on 07-10-2020 17:23:29 EST by Kristie Espino
== END 2020-07-10 14:44 | disposition home or self-care (01) ==
LOC: M ED 10:38 → EDBD 10:38 → M ED 14:44
DX: G40.309 Generalized idiopathic epilepsy and epileptic syndromes, not intractable, without status epilepticus (principal); S50.12XA Contusion of left forearm, initial encounter; X58.XXXA Exposure to other specified factors, initial encounter; Y92.89 Other specified places as the place of occurrence of the external cause; M79.602 Pain in left arm; Z91.14 Patient's other noncompliance with medication regimen; Z88.0 Allergy status to penicillin; Z88.5 Allergy status to narcotic agent; Z79.899 Other long term (current) drug therapy
CPT/HCPCS: 70450; 73080; 73090; 73110; 80048; 80076; 80156; 80185; 84443; 85025; 93005; 93041; 94760; 96374; 96376; 99285; J2270

== ENCOUNTER → 2022-05-04 | Outpatient (CLI) | payer BC ==
[~2022-05-04] MED LIST changes: +AIMO70IN2 IM; +BIOT10009 PO; +CAL-TAB4 PO; +D31000CA4 PO; +SILD50TA2; +VITA500T40 PO
== END ==
LOC: M LABSMTC 11:01
PROVIDERS: ATTEND Anesthesiology
DX: Z01.812 Encounter for preprocedural laboratory examination (principal)

== ENCOUNTER 2022-05-07 10:37 | Day surgery (SDC) | payer BC ==
[~2022-05-07] VITALS: Ht 188 cm; Wt 140.8 kg
[~2022-05-07 10:37] MED LIST changes: +NS 1,000 ML IV ONE
[2022-05-07] MEDS ORDERED: LIDOCAINE 2% 100MG/5ML SDV (FOR ANES.) As Ordered ONE (10:57)
[2022-05-07] MEDS ORDERED: fentaNYL 100 MCG/2 ML INJECTION As Ordered ONE (10:57)
[2022-05-07] MEDS ORDERED: propofoL 200 MG/20 ML VIAL As Ordered ONE ×2 (10:57→11:32)
[2022-05-07 11:50] VITALS: BP 140/71
== END 2022-05-07 12:01 | disposition home or self-care (01) ==
LOC: M OPP 10:37
PROVIDERS: ATTEND Internal Medicine Gastroenterology
DX: Z12.11 Encounter for screening for malignant neoplasm of colon (principal); Z80.0 Family history of malignant neoplasm of digestive organs; K64.0 First degree hemorrhoids; K22.89 Other specified disease of esophagus; Z98.84 Bariatric surgery status; F17.220 Nicotine dependence, chewing tobacco, uncomplicated; Z79.899 Other long term (current) drug therapy; Z88.0 Allergy status to penicillin; Z88.5 Allergy status to narcotic agent; Z88.8 Allergy status to other drugs, medicaments and biological substances; Z86.69 Personal history of other diseases of the nervous system and sense organs; G25.81 Restless legs syndrome
CPT/HCPCS: 43239; 45378; 88305; J3010

== ENCOUNTER → 2022-08-29 | Outpatient (REF) ==
[~2022-08-29] MED LIST changes: -NS 1,000 ML IV ONE
== END ==
LOC: M LABSMTC 11:51
PROVIDERS: ATTEND Family Medicine
DX: Z11.52 Encounter for screening for COVID-19 (principal)

== ENCOUNTER 2023-06-17 10:31 | Emergency (ER) | payer BC ==
[~2023-06-17] VITALS: Ht 182.9 cm; Wt 147.7 kg
[2023-06-17] MEDS ORDERED: NS 1,000 ML IV ONE (10:50)
[2023-06-17 11:28] LABS: BASO % 0.5 % (0.0-1.0); EOS # 0.1 10^3/uL (0.0-0.5); EOS % 2.3 % (0.0-3.0); HEMOGLOBIN 12.7 g/dl (13.5-17.5); LYMPH # 0.8 10^3/uL (1.5-5.0); LYMPH % 18.3 % (24.0-44.0); MEAN CORPUSCULAR HEMOGLOBIN 29.7 pg (27.0-33.0); MEAN CORPUSCULAR HGB CONC 32.6 g/dl (32.0-36.5); MEAN CORPUSCULAR VOLUME 91.1 fl (80.0-96.0); MONO # 0.3 10^3/uL (0.0-0.8); NEUTROPHILS # 3.1 10^3/uL (1.5-8.5); NEUTROPHILS % 71.7 % (36.0-66.0); PLATELET COUNT, AUTOMATED 199 10^3/uL (150-450); RED BLOOD COUNT 4.28 10^6/uL (4.30-6.10); WHITE BLOOD COUNT 4.3 10^3/uL (4.0-10.0)
[2023-06-17 11:50] LABS: CK-MB VALUE MASS 3.9 NG/ML (<3.6)
[2023-06-17 11:51] LABS: VALPROIC ACID (DEPAKOTE) < 3.0 UG/ML (50.0-100.0)
[2023-06-17 11:52] LABS: ALBUMIN 3.3 G/DL (3.2-5.2); ALKALINE PHOSPHATASE 85 U/L (46-116); ALT/SGPT 48 U/L (7.0-40); AST/SGOT 38 U/L (<34); BILIRUBIN,DIRECT 0.1 MG/DL (<0.4); BILIRUBIN,TOTAL 0.3 MG/DL (0.3-1.2); BLOOD UREA NITROGEN 18 MG/DL (9-23); CALCIUM LEVEL 8.9 MG/DL (8.5-10.1); CARBON DIOXIDE LEVEL 27 MMOL/L (20-31); CHLORIDE LEVEL 108 MMOL/L (98-107); CREATININE FOR GFR 0.68 MG/DL (0.70-1.30); GLOMERULAR FILTRATION RATE > 60.0 (>60); GLUCOSE, FASTING 113 MG/DL (60-100); MAGNESIUM LEVEL 1.7 MG/DL (1.8-2.4); PHOSPHORUS LEVEL 2.6 MG/DL (2.5-4.9); POTASSIUM SERUM 3.9 MMOL/L (3.5-5.1); SODIUM LEVEL 141 MMOL/L (136-145); TOTAL PROTEIN 6.4 G/DL (5.7-8.2)
[2023-06-17 11:54] LABS: CPK CREATINE PHOSPHOKINASE 338 U/L (46-171); MB/CK RELATIVE INDEX 1.15 (< OR =4)
[2023-06-17 12:02] LABS: APPEARANCE, URINE CLEAR (CLEAR); BACTERIA, URINE AUTO NEGATIVE (NEGATIVE); BILIRUBIN, URINE AUTO NEGATIVE (NEGATIVE); BLOOD, URINE BLOOD NEGATIVE (NEGATIVE); COLOR, URINE YELLOW (YELLOW); GLUCOSE, URINE (UA) AUTO NEGATIVE (NEGATIVE); KETONE, URINE AUTO NEGATIVE (NEGATIVE); LEUKOCYTE ESTERASE, URINE AUTO NEGATIVE (NEGATIVE); NITRITE, URINE AUTO NEGATIVE (NEGATIVE); PROTEIN, URINE AUTO 1+ mg/dL (NEGATIVE); RBC, URINE AUTO 0 /HPF (0-3); SPECIFIC GRAVITY URINE AUTO 1.026 (1.002-1.035); SQUAMOUS EPITHELIAL CELL UR AU 0 /HPF (0-6); UROBILINOGEN, URINE AUTO 0.2 mg/dL (0.0-2.0); WBC, URINE AUTO 1 /HPF (0-3)
[2023-06-17] MEDS ORDERED: ISOVUE-370 76% 100ML VIAL As Ordered ONE (12:11)
[2023-06-17 12:32] LABS: AMPHETAMINES LEVEL URINE NEGATIVE (NEGATIVE); BENZODIAZEPINES URINE NEGATIVE (NEGATIVE)
[2023-06-17 12:33] LABS: BARBITURATES URINE NEGATIVE (NEGATIVE); CANNABINOIDS URINE NEGATIVE (NEGATIVE); COCAINE METABOLITE URINE NEGATIVE (NEGATIVE); METHADONE URINE NEGATIVE (NEGATIVE); OPIATES URINE NEGATIVE (NEGATIVE); PHENCYCLIDINE URINE NEGATIVE (NEGATIVE)
[2023-06-17] MEDS ORDERED: ZONI100C67 PO (13:21)
[2023-06-17 13:37] VITALS: BP 156/79; TEMP 97.2; O2SAT 100
[2023-06-19 15:07] LABS: CARBAMAZEPINE (TEGRETOL) SO 6.2 ug/mL (4.0-12.0)
== END 2023-06-17 13:41 | disposition home or self-care (01) ==
LOC: EDBD 10:31 → M ED 10:31
DX: R56.9 Unspecified convulsions (principal); K44.9 Diaphragmatic hernia without obstruction or gangrene; Z98.84 Bariatric surgery status; Z79.899 Other long term (current) drug therapy; Z88.0 Allergy status to penicillin; Z88.5 Allergy status to narcotic agent; Z88.8 Allergy status to other drugs, medicaments and biological substances
CPT/HCPCS: 70450; 71045; 71275; 80048; 80076; 80156; 80164; 80203; 80307; 81001; 82140; 82553; 83605; 83735; 84100; 84484; 85025; 85379; 93041; 94760; 96360; 99285; Q9967

== ENCOUNTER → 2024-03-07 | Outpatient (CLI) | payer BC ==
[~2024-03-07] MED LIST changes: +ZONI100C67 PO
[2024-03-07 13:52] LABS: BASO % 0.4 % (0.0-1.0); EOS # 0.1 10^3/uL (0.0-0.5); EOS % 2.4 % (0.0-3.0); HEMATOCRIT 42.9 % (42.0-52.0); LYMPH # 1.6 10^3/uL (1.5-5.0); LYMPH % 34.3 % (24.0-44.0); MEAN CORPUSCULAR HEMOGLOBIN 29.2 pg (27.0-33.0); MEAN CORPUSCULAR HGB CONC 32.6 g/dl (32.0-36.5); MEAN CORPUSCULAR VOLUME 89.6 fl (80.0-96.0); MONO # 0.4 10^3/uL (0.0-0.8); MONO % 9.2 % (2.0-8.0); NEUTROPHILS # 2.5 10^3/uL (1.5-8.5); NEUTROPHILS % 53.5 % (36.0-66.0); PLATELET COUNT, AUTOMATED 266 10^3/uL (150-450); RED BLOOD COUNT 4.79 10^6/uL (4.30-6.10); WHITE BLOOD COUNT 4.7 10^3/uL (4.0-10.0)
[2024-03-07 14:16] LABS: VALPROIC ACID (DEPAKOTE) < 3.0 UG/ML (50.0-100.0)
[2024-03-07 14:17] LABS: ALKALINE PHOSPHATASE 112 U/L (46-116); ALT/SGPT 50 U/L (7.0-40); AST/SGOT 36 U/L (<34); BILIRUBIN,TOTAL 0.4 MG/DL (0.3-1.2); BLOOD UREA NITROGEN 15 MG/DL (9-23); CALCIUM LEVEL 8.7 MG/DL (8.5-10.1); CARBON DIOXIDE LEVEL 27 MMOL/L (20-31); CHLORIDE LEVEL 105 MMOL/L (98-107); CREATININE FOR GFR 0.88 MG/DL (0.70-1.30); GLOMERULAR FILTRATION RATE > 60.0 (>60); GLUCOSE, FASTING 100 MG/DL (60-100); POTASSIUM SERUM 4.1 MMOL/L (3.5-5.1); SODIUM LEVEL 137 MMOL/L (136-145); TOTAL PROTEIN 7.2 G/DL (5.7-8.2)
== END ==
LOC: M PLALAB 10:23
PROVIDERS: ATTEND Psychiatry & Neurology Neurology
DX: R56.9 Unspecified convulsions (principal)

== ENCOUNTER → 2024-03-31 | Outpatient (REF) | LOC: M EMP 08:14 | PROVIDERS: ATTEND Family Medicine | DX: Z11.52 Encounter for screening for COVID-19 (principal) ==